=== PATIENT | male | born 1985 | race African-American/Black ===

== ENCOUNTER 2021-10-23 01:55 | Emergency (ER) | payer OTHER ==
[~2021-10-23] VITALS: Ht 182.9 cm; Wt 83.9 kg
--- NOTE | 2021-10-23 03:25 | NUR ---
Dr Mayers at bedside, MSE in progress.
[2021-10-23] MEDS ORDERED: OXYC-128 PO (03:45)
[2021-10-23 03:58] VITALS: BP 138/75
--- NOTE | 2021-10-23 03:58 | NUR ---
Patient discharged to home in stable condition. Written and verbal after care instructions given. Patient verbalizes understanding of instructions. Stressed follow up or return to ER for worsening s/s. pt ambulated with steady gait. no SOB. no chest pain. AO x4
== END 2021-10-23 03:59 | disposition home or self-care (01) ==
LOC: ER 02:08
DX: S39.012A Strain of muscle, fascia and tendon of lower back, initial encounter (principal); V49.40XA Driver injured in collision with unspecified motor vehicles in traffic accident, initial encounter; Y92.410 Unspecified street and highway as the place of occurrence of the external cause
CPT/HCPCS: 72072; 72100; A4663